=== PATIENT | female | born 1935 | race Asian ===

== ENCOUNTER 2020-11-05 04:01 | Inpatient (IN) | payer MEDICARE, OTHER ==
[~2020-11-05] VITALS: Ht 160 cm; Wt 50.9 kg
[2020-11-05] MEDS ORDERED: IBUPROFEN 400 MG TABLET PO ONE (05:00)
[2020-11-05] MEDS ORDERED: ACETAMINOPHEN 325 MG TABLET PO ONE (05:00)
--- NOTE | 2020-11-05 05:01 | NUR ---
Patient BIB daughter from home for CO SOB that started 1 week ago and coughing up blood through mouth and nose.
[2020-11-05] MEDS ORDERED: ACETAMINOPHEN 325 MG TABLET ONE (05:03)
[2020-11-05] MEDS ORDERED: IBUPROFEN 400 MG TABLET ONE (05:03)
[2020-11-05] MEDS ORDERED: metoprolol succinate PO (05:14)
[2020-11-05] MEDS ORDERED: DOCU250C14 PO (05:14)
[2020-11-05] MEDS ORDERED: DIGO125T PO (05:14)
[2020-11-05] MEDS ORDERED: RIVA10TA PO (05:14)
[2020-11-05] MEDS ORDERED: LIPA1CAP15 PO (05:14)
[2020-11-05] MEDS ORDERED: rosuvastatin PO (05:14)
[2020-11-05] MEDS ORDERED: METF-440 PO (05:14)
[2020-11-05] MEDS ORDERED: AMIO200T5 PO (05:14)
[2020-11-05 05:28] LABS: HEMATOCRIT 38.1 % (31.2-41.9); MEAN CORPUSCULAR HEMOGLOBIN 28.8 uug (24.7-32.8); MEAN CORPUSCULAR VOLUME 86.6 fL (75.5-95.3); PLATELET COUNT (AUTO) 147 K/uL (179-408)
[2020-11-05] MEDS ORDERED: CEFEPIME HCL 1 G in IV DEXTROSE 5% 50 ML IV ONE (05:30)
[2020-11-05] MEDS ORDERED: DOXYCYCLINE HYCLATE IV 100 MG in IV DEXTROSE 5% 100 ML IV ONE (05:30)
[2020-11-05] MEDS ORDERED: DOXYCYCLINE HYCLATE 100 MG INJ IV ONE (05:41)
[2020-11-05] MEDS ORDERED: CEFEPIME HCL 1 G VIAL ONE (05:41)
[2020-11-05 05:46] LABS: CREATININE 0.8 mg/dL (0.6-1.3); POTASSIUM 3.8 mmol/L (3.5-5.1)
[2020-11-05 05:51] LABS: BILIRUBIN,DIRECT 0.2 mg/dL (0.0-0.2); BILIRUBIN,TOTAL 0.7 mg/dL (0.2-1.0); TOTAL PROTEIN, SERUM 7.1 g/dL (6.4-8.2)
[2020-11-05 06:00] LABS: MAGNESIUM 1.9 mg/dL (1.8-2.4); PHOSPHOROUS 3.6 mg/dL (2.5-4.9)
[2020-11-05 06:02] LABS: THYROID STIMULATING HORMONE 0.31 mIU/mL (0.358-3.740)
[2020-11-05 06:03] LABS: *BILIRUBIN,URIN NEGATIVE (NEGATIVE); *BLOOD, URINE 1+ (NEGATIVE); *CLARITY,URINE CLEAR (CLEAR); *COLOR,URINE YELLOW (YELLOW); *KETONES,URINE NEGATIVE (NEGATIVE); *UROBILINOGEN,URINE 0.2 E.U./dl (NORMAL); LEUKOCYTE ESTERASE ,URINE TRACE (NEGATIVE); NITRITE, URINE NEGATIVE (NEGATIVE); UGLUCOSE TRACE (NEGATIVE)
[2020-11-05] MEDS ORDERED: ASPIRIN 325 MG TABLET PO ONE (06:15)
[2020-11-05] MEDS ORDERED: FUROSEMIDE 40 MG/4 ML VIAL IV ONE (06:15)
[2020-11-05 06:18] LABS: BACTERIA,URINE NONE SEEN /HPF (NONE SEEN); SQUAMOUS EPITHELIAL CELL,UR NONE SEEN /HPF (NONE SEEN); WBC,URINE 0-3 /HPF (0-3)
[2020-11-05] MEDS ORDERED: IOHEXOL 350 100 ML INFUS..BTL ONE (06:21)
[2020-11-05] MEDS ORDERED: SWABABLE VALVE TRANSFER SET EA MC ONE (06:21)
[2020-11-05] MEDS ORDERED: IV NORMAL SALINE 250 ML IV ONE (06:21)
[2020-11-05] MEDS ORDERED: ASPIRIN 325 MG TABLET ONE ×2 (06:42→07:22)
[2020-11-05] MEDS ORDERED: FUROSEMIDE 20 MG/2 ML VIAL ONE (06:43)
[2020-11-05] MEDS ORDERED: FUROSEMIDE 40 MG/4 ML VIAL ONE (06:44)
--- NOTE | 2020-11-05 09:36 | NUR ---
Patient is eating breakfast with good appetite.
--- NOTE | 2020-11-05 10:40 | NUR ---
Received patient to Telemetry from ED via wheelchair. Patient AOx4. On 2L O2 via NC, saturating 96-97%. Patient denies pain/ discomfort at this time. Oriented patient to unit and room. Call light within reach. Bed alarm on. Bed locked and in low position. Will continue to monitor.
[2020-11-05 10:45] VITALS: BP 157/82
[2020-11-05] MEDS ORDERED: ACETAMINOPHEN 325 MG TABLET PO PRN (11:15)
[2020-11-05] MEDS ORDERED: ONDANSETRON 4 MG/2 ML VIAL IV PRN (11:15)
[2020-11-05] MEDS ORDERED: MORPHINE SULFATE 2 MG/1 ML DISP.SYRIN IV PRN (11:15)
[2020-11-05] MEDS: METOPROLOL SUCCINATE XL 50 MG TAB.SR.24H PO SCH (12:03)
[2020-11-05] MEDS: LIPASE/PROTEASE/AMYLASE 4200 UNITS CAPSULE.DR PO SCH ×2 (12:26→17:28)
[2020-11-05] MEDS ORDERED: Medication Not On Formulary EA (Lipase/Protease/Amylase (Creon Dr 36,000 Units Capsule) PO SCH (13:00)
[2020-11-05 15:46] VITALS: BP 145/81
[2020-11-05] MEDS: DOCUSATE SODIUM 250 MG CAPSULE PO SCH (17:28)
[2020-11-05] MEDS: RIVAROXABAN 15 MG TABLET PO SCH (17:29)
--- NOTE | 2020-11-05 18:24 | NUR ---
Patient awake in bed. AOx4. On 2L O2 via NC, saturating at 96%. NSR on cardiac monitor technician. Patient with left AC #18 gauge heplock. No signs of acute distress. Patient denies pain/ discomfort. Patient denies SOB/ . Patient compliant with medications and care. Safety measures provided. Needs anticipated and attended. Will endorse to incoming shift for continuity of care.
[2020-11-05 19:53] VITALS: BP 156/84
[2020-11-05] MEDS ORDERED: DOCUSATE SODIUM 250 MG CAPSULE PO SCH (21:00)
[2020-11-06 00:12] VITALS: BP 151/87
[2020-11-06 04:35] VITALS: BP 137/86
[2020-11-06] MEDS: PANTOPRAZOLE SODIUM 40 MG TABLET.DR PO SCH (06:38)
[2020-11-06 06:48] LABS: HEMATOCRIT 39.8 % (31.2-41.9); MEAN CORPUSCULAR HEMOGLOBIN 28.8 uug (24.7-32.8); MEAN CORPUSCULAR VOLUME 86.2 fL (75.5-95.3); PLATELET COUNT (AUTO) 159 K/uL (179-408)
--- NOTE | 2020-11-06 07:03 | NUR ---
Pt slept throughout the night. No acute distress noted. IV site intact, able to make needs known. Safety and comfort provided. No other issues or concerns at this time, will endorse to day shift.
[2020-11-06 07:24] LABS: BILIRUBIN,TOTAL 1.1 mg/dL (0.2-1.0); CREATININE 0.8 mg/dL (0.6-1.3); MAGNESIUM 2.1 mg/dL (1.8-2.4); PHOSPHOROUS 3.5 mg/dL (2.5-4.9); POTASSIUM 3.4 mmol/L (3.5-5.1)
[2020-11-06 07:30] LABS: THYROID STIMULATING HORMONE 0.37 mIU/mL (0.358-3.740)
[2020-11-06] MEDS ORDERED: POTASSIUM CHLORIDE 20 MEQ POWDER PACKET GT ONE (08:45)
[2020-11-06] MEDS ORDERED: FUROSEMIDE 40 MG/4 ML VIAL IV SCH (09:00)
[2020-11-06] MEDS ORDERED: RIVAROXABAN 10 MG TABLET PO SCH (09:00)
[2020-11-06] MEDS: DOCUSATE SODIUM 250 MG CAPSULE PO SCH ×2 (09:21→17:29)
[2020-11-06] MEDS: LIPASE/PROTEASE/AMYLASE 4200 UNITS CAPSULE.DR PO SCH ×3 (09:21→17:30)
[2020-11-06] MEDS: DIGOXIN 125 MCG TABLET PO SCH (09:22)
[2020-11-06] MEDS: FUROSEMIDE 20 MG TABLET PO SCH (09:27)
[2020-11-06] MEDS: ASPIRIN 81 MG TAB.CHEW PO SCH (09:27)
[2020-11-06] MEDS: AMIODARONE HCL 200 MG TABLET PO SCH (09:36)
[2020-11-06] MEDS: METOPROLOL SUCCINATE XL 50 MG TAB.SR.24H PO SCH (09:36)
[2020-11-06] MEDS: LOSARTAN POTASSIUM 50 MG TABLET PO SCH (09:37)
[2020-11-06] MEDS: CEFTRIAXONE 1 G in IV DEXTROSE 5% 50 ML IV SCH (10:21)
[2020-11-06] MEDS: AZITHROMYCIN IV 500 MG in IV DEXTROSE 5% 250 ML IV SCH (10:52)
[2020-11-06 11:14] VITALS: BP 143/88
[2020-11-06 15:22] VITALS: BP 142/66
[2020-11-06] MEDS: RIVAROXABAN 15 MG TABLET PO SCH (17:29)
--- NOTE | 2020-11-06 18:00 | NUR ---
Patient pulled out IV access. Quantitative Manager attempted to insert new IV access but patient refused at this time. Quantitative Manager explained the need and importance of IV access but patient refused.
--- NOTE | 2020-11-06 18:29 | NUR ---
Patient AOx4. On 1L O2 via NC, saturating 96-97%. No signs of acute distress. Patient denies pain/ discomfort. Compliant with medications and care. Needs anticipated and met. Safety measures provided. Call light within reach. Will endorse to incoming shift for continuity of care.
--- NOTE | 2020-11-06 20:30 | NUR ---
pt refused her iv insertion at this time; educated with need to have IV while on telemetry; pt prefers to have IV insertion in AM for her antibiotics.
[2020-11-06] MEDS: ATORVASTATIN 40 MG TABLET PO SCH (20:52)
[2020-11-06 20:53] VITALS: BP 152/82
[2020-11-07 00:35] VITALS: BP 149/75
--- NOTE | 2020-11-07 03:30 | NUR ---
Handoff report to Nurse Stefani who will assume care.
[2020-11-07 04:42] VITALS: BP 158/77
[2020-11-07 06:03] LABS: HEMATOCRIT 40.1 % (31.2-41.9); MEAN CORPUSCULAR HEMOGLOBIN 28.8 uug (24.7-32.8); MEAN CORPUSCULAR VOLUME 85.9 fL (75.5-95.3); PLATELET COUNT (AUTO) 164 K/uL (179-408)
[2020-11-07] MEDS: PANTOPRAZOLE SODIUM 40 MG TABLET.DR PO SCH (06:06)
[2020-11-07 06:41] LABS: MAGNESIUM 2.1 mg/dL (1.8-2.4); PHOSPHOROUS 3.5 mg/dL (2.5-4.9); POTASSIUM 3.7 mmol/L (3.5-5.1)
[2020-11-07] MEDS: LIPASE/PROTEASE/AMYLASE 4200 UNITS CAPSULE.DR PO SCH ×3 (08:26→17:36)
[2020-11-07] MEDS: GLIMEPIRIDE 2 MG TABLET PO SCH (08:26)
[2020-11-07] MEDS: ASPIRIN 81 MG TAB.CHEW PO SCH (09:56)
[2020-11-07] MEDS: DOCUSATE SODIUM 250 MG CAPSULE PO SCH ×2 (09:56→17:33)
[2020-11-07] MEDS: FUROSEMIDE 20 MG TABLET PO SCH (09:56)
[2020-11-07] MEDS: METOPROLOL SUCCINATE XL 50 MG TAB.SR.24H PO SCH (09:57)
[2020-11-07] MEDS: DIGOXIN 125 MCG TABLET PO SCH (09:57)
[2020-11-07] MEDS: LOSARTAN POTASSIUM 50 MG TABLET PO SCH (09:58)
[2020-11-07] MEDS: AMIODARONE HCL 200 MG TABLET PO SCH (09:58)
[2020-11-07] MEDS: CEFTRIAXONE 1 G in IV DEXTROSE 5% 50 ML IV SCH (10:08)
[2020-11-07] MEDS: AZITHROMYCIN IV 500 MG in IV DEXTROSE 5% 250 ML IV SCH (10:51)
[2020-11-07 12:00] VITALS: BP 158/85
[2020-11-07 16:00] VITALS: BP 145/80
[2020-11-07] MEDS: RIVAROXABAN 15 MG TABLET PO SCH (17:32)
--- NOTE | 2020-11-07 19:18 | NUR ---
Patient AOx4. On 1L O2 via NC, saturating 97-98%. No signs of acute distress. Patient compliant with medications and care. Needs anticipated and met. Call light within reach. Bed alarm on for safety. Will endorse to incoming shift for continuity of care.
--- NOTE | 2020-11-07 19:20 | NUR ---
Received pt in bed, A&Ox4, verbally responsive, Ukrainian speaking, able to make needs known. On oxygen at 1LPM via NC, no signs of acute distress. Denies any pain or discomfort. Safety measures initiated, call light and belongings within reach.
[2020-11-07] MEDS: ATORVASTATIN 40 MG TABLET PO SCH (20:33)
[2020-11-07 20:41] VITALS: BP 159/87
[2020-11-07] MEDS ORDERED: ENALAPRILAT DIHYDRATE 1.25 MG/1 ML VIAL IV PRN (21:30)
[2020-11-07 22:35] VITALS: BP 145/86
[2020-11-08 00:14] VITALS: BP 142/82
[2020-11-08 04:30] VITALS: BP 130/82
[2020-11-08] MEDS: PANTOPRAZOLE SODIUM 40 MG TABLET.DR PO SCH (06:00)
--- NOTE | 2020-11-08 06:23 | NUR ---
Slept intermittently through the night, no signs of distress noted. Tolerated medications well. Safety measures maintained at all times. All needs attended to and met. No significant change in condition noted.
[2020-11-08 08:19] VITALS: BP 150/91
[2020-11-08] MEDS: LOSARTAN POTASSIUM 50 MG TABLET PO SCH (08:28)
[2020-11-08] MEDS: METOPROLOL SUCCINATE XL 50 MG TAB.SR.24H PO SCH (08:28)
[2020-11-08] MEDS: FUROSEMIDE 20 MG TABLET PO SCH (08:28)
[2020-11-08] MEDS: ASPIRIN 81 MG TAB.CHEW PO SCH (08:28)
[2020-11-08] MEDS: DOCUSATE SODIUM 250 MG CAPSULE PO SCH ×2 (08:28→17:28)
[2020-11-08] MEDS: AMIODARONE HCL 200 MG TABLET PO SCH (08:29)
[2020-11-08] MEDS: GLIMEPIRIDE 2 MG TABLET PO SCH (08:30)
[2020-11-08] MEDS: DIGOXIN 125 MCG TABLET PO SCH (08:30)
--- NOTE | 2020-11-08 08:30 | NUR ---
PT RESTING IN BED, A/OX4, ON TELE MONITOR, ON 1L O2 VIA NC, SATURATING AT 97%. PT HAS PACEMAKER ON ELEFT CHEST WALL, PT BRP WITH ASSIST, CANE AT BEDSIDE. PT BRP, IV ON THE RIGHT HAND 22G, BED LOW AND LOCKED, WILL CONTINUE TO MONITOR.
[2020-11-08] MEDS: CEFTRIAXONE 1 G in IV DEXTROSE 5% 50 ML IV SCH (08:36)
[2020-11-08] MEDS: LIPASE/PROTEASE/AMYLASE 4200 UNITS CAPSULE.DR PO SCH ×3 (08:36→17:28)
--- NOTE | 2020-11-08 09:30 | NUR ---
PT COMPLAINTS OF CHEST PAIN, MD NOTIFIED, ORDERS GIVEN FOR NITRO 0.4 SL Q10MIN [id number]. MEDICATION GIVEN ORDERED. WILL CONTINUE TO MONITOR.
[2020-11-08] MEDS: NITROGLYCERIN 0.4 MG/TAB BOTTLE SL PRN ×2 (09:51→10:09)
[2020-11-08] MEDS ORDERED: AZITHROMYCIN 250 MG TABLET PO SCH (10:00)
[2020-11-08 11:05] LABS: HEMATOCRIT 37.8 % (31.2-41.9); MEAN CORPUSCULAR HEMOGLOBIN 28.6 uug (24.7-32.8); MEAN CORPUSCULAR VOLUME 85.5 fL (75.5-95.3); PLATELET COUNT (AUTO) 176 K/uL (179-408)
[2020-11-08 12:00] VITALS: BP 106/76
[2020-11-08 16:38] VITALS: BP 124/66
[2020-11-08] MEDS ORDERED: GLUCERNA SHAKE VANILLA 237 ML CAN PO SCH (17:00)
[2020-11-08] MEDS ORDERED: ACET325T53 PO (19:44)
[2020-11-08] MEDS ORDERED: CEFT1VIA15 IV (19:44)
[2020-11-08] MEDS ORDERED: ONDA4VIA23 IV (19:44)
[2020-11-08] MEDS ORDERED: Morphine Sulfate Inj IV (19:44)
[2020-11-08] MEDS ORDERED: PANT40TA2 PO (19:44)
[2020-11-08] MEDS ORDERED: ATOR10TA PO (19:44)
[2020-11-08] MEDS ORDERED: Nitroglycerin Sl SL (19:44)
[2020-11-08] MEDS ORDERED: METO-357 PO (19:44)
[2020-11-08] MEDS ORDERED: NUT.237L28 PO (19:44)
[2020-11-08] MEDS ORDERED: LOSA50TA3 PO (19:44)
[2020-11-08] MEDS ORDERED: GLIM2TAB PO (19:44)
[2020-11-08] MEDS ORDERED: ENAL1.2515 IV (19:44)
[2020-11-08] MEDS ORDERED: FURO20TA4 PO (19:44)
--- NOTE | 2020-11-08 19:55 | NUR ---
Received patient in bed awake alert and able to make needs known. On Ra.Denies chest pain.No SOB.Ambulates with the use of cane.IV on Rt hand 20g patent and intact. Patient is aware that is going to be transferred today to [place].Call light with in reach.
[2020-11-08 20:00] VITALS: BP 114/72
[2020-11-08] MEDS: ATORVASTATIN 40 MG TABLET PO SCH (20:50)
--- NOTE | 2020-11-08 22:01 | NUR ---
Patient picked up by [facility] to be transported to [facility] in stable condition. Vital signs WNR.Discharged instruction given to patient . All Discharged paper and belonging list signed and given to patient.Report given to Rosangela/Rn at [place].
== END 2020-11-08 21:55 | disposition short-term general hospital (02) | DRG 280 ==
LOC: ER 04:12 → TELE3 09:40
PROVIDERS: ADMIT Internal Medicine; ATTEND Internal Medicine
DX: I11.0 Hypertensive heart disease with heart failure (principal); J18.9 Pneumonia, unspecified organism; I21.A1 Myocardial infarction type 2; I31.3 Pericardial effusion (noninflammatory); R04.2 Hemoptysis; I50.43 Acute on chronic combined systolic (congestive) and diastolic (congestive) heart failure; I42.9 Cardiomyopathy, unspecified; E11.9 Type 2 diabetes mellitus without complications; E78.5 Hyperlipidemia, unspecified; Z11.1 Encounter for screening for respiratory tuberculosis; Z95.0 Presence of cardiac pacemaker; E11.65 Type 2 diabetes mellitus with hyperglycemia; E05.90 Thyrotoxicosis, unspecified without thyrotoxic crisis or storm; I08.0 Rheumatic disorders of both mitral and aortic valves; I48.91 Unspecified atrial fibrillation; I70.0 Atherosclerosis of aorta; I45.4 Nonspecific intraventricular block; K86.89 Other specified diseases of pancreas; Z20.822 Contact with and (suspected) exposure to COVID-19; Z77.22 Contact with and (suspected) exposure to environmental tobacco smoke (acute) (chronic); Z79.01 Long term (current) use of anticoagulants; Z79.84 Long term (current) use of oral hypoglycemic drugs; Z86.11 Personal history of tuberculosis
CPT/HCPCS: 36415; 70030-TC; 71045; 71275; 83605; 83615; 83735; 84100; 84443; 85025; 85730; 86140; 87040; 87070; 93005; 93307; 97161; A4663; G0378; J0456; J0692; J0696; J1940; J3490; J7040; J7050; J7060; Q0144; Q9967; U0003